=== PATIENT | male | born 1945 | race Caucasian/White ===

== ENCOUNTER → 2016-11-01 | Outpatient (CLI) | payer OTHER ==
[~2016-11-01] MED LIST: CALCTAB5 PO; CENTTAB41 PO; MAGNESIUM PO; OXYC-57 PO; ZINC PO
[2016-11-01 12:29] LABS: BASO % 0.5 %; BASO ABS # 0.03 K/uL (0-0.2); COMPLETE YES; EOS % 3.1 %; HEMATOCRIT 38.2 % (42-52); IG% 0.3 %; LYMPH % 39.3 %; LYMPH ABS # 2.54 K/uL (1.2-3.4); MEAN CELL VOLUME 87.4 fL (80-100); MEAN CORPUSCULAR HEMOGLOBIN 30.2 pg (25-34); MEAN CORPUSCULAR HGB CONC 34.6 g/dl (32-36); MEAN PLATELET VOLUME 10.4 fL (7.4-10.4); MONO % 8.5 %; NEUT % 48.3 %; PLATELET COUNT 241 K/uL (130-400); RED BLOOD COUNT 4.37 M/uL (4.7-6.1); WHITE BLOOD COUNT 6.47 K/uL (4.8-10.8)
[2016-11-01 12:52] LABS: CHOLESTEROL/HDL RATIO 3.2
[2016-11-01 13:42] LABS: ESTIMATED AVERAGE GLUCOSE 123 mg/dl; HA1C FLAG Normal (Normal)
== END | disposition home or self-care (01) ==
LOC: C.LABBFT 07:33
PROVIDERS: ATTEND Internal Medicine
DX: D64.9 Anemia, unspecified (principal); E78.5 Hyperlipidemia, unspecified; R73.9 Hyperglycemia, unspecified

== ENCOUNTER → 2016-12-07 | Outpatient (CLI) | payer OTHER | END | disposition home or self-care (01) | LOC: C.LAB 08:52 | PROVIDERS: ATTEND Internal Medicine | DX: R73.9 Hyperglycemia, unspecified (principal) ==

== ENCOUNTER → 2017-03-23 | Outpatient (CLI) | payer OTHER ==
[2017-03-23 13:25] LABS: CHOLESTEROL/HDL RATIO 3.3
== END ==
LOC: C.LABBFT 07:35
PROVIDERS: ATTEND Internal Medicine
DX: E78.5 Hyperlipidemia, unspecified (principal)

== ENCOUNTER → 2017-12-26 | Outpatient (CLI) | payer OTHER ==
[2017-12-26 12:32] LABS: BASO % 0.6 %; BASO ABS # 0.04 K/uL (0-0.2); EOS % 7.5 %; EOS ABS # 0.51 K/uL (0-0.5); HEMATOCRIT 36.8 % (42-52); HEMOGLOBIN 12.5 g/dL (14.0-18.0); IG# 0.02 K/uL (0.00-0.02); LYMPH % 28.8 %; LYMPH ABS # 1.96 K/uL (1.2-3.4); MEAN CELL VOLUME 87.2 fL (80-100); MEAN CORPUSCULAR HEMOGLOBIN 29.6 pg (25-34); MEAN PLATELET VOLUME 9.7 fL (7.4-10.4); MONO % 9.7 %; MONO ABS # 0.66 K/uL (0.11-0.59); NEUT % 53.1 %; NEUT ABS # 3.61 K/uL (1.4-6.5); PLATELET COUNT 270 K/uL (130-400); RED CELL DISTRIBUTION WIDTH CV 12.6 % (11.5-14.5); RED CELL DISTRIBUTION WIDTH SD 40.6 fL (36.4-46.3)
[2017-12-26 13:34] LABS: ALBUMIN 3.5 gm/dl (3.4-5.0); ALT/SGPT 22 U/L (12-78); BLOOD UREA NITROGEN 17 mg/dl (7-18); CARBON DIOXIDE 28 mmol/L (21-32); CHOLESTEROL 184 mg/dl (0-200); CREATININE 1.06 mg/dl (0.60-1.40); GLUCOSE 95 mg/dl (70-99); POTASSIUM 4.5 mmol/L (3.5-5.1); SODIUM 137 mmol/L (136-145)
[2017-12-26 13:37] LABS: ALKALINE PHOSPHATASE 68 U/L (45-117); AST/SGOT 15 U/L (15-37); LDL CHOLESTEROL CALCULATED 102 mg/dl; TOTAL PROTEIN 7.5 gm/dl (6.4-8.2)
== END | disposition home or self-care (01) ==
LOC: C.LABBFT 07:24
PROVIDERS: ATTEND Internal Medicine
DX: R73.09 Other abnormal glucose (principal); R73.01 Impaired fasting glucose; E78.5 Hyperlipidemia, unspecified

== ENCOUNTER → 2017-12-31 | Outpatient (CLI) | payer OTHER | END | disposition home or self-care (01) | LOC: C.LABBFT 15:36 | PROVIDERS: ATTEND Internal Medicine | DX: D64.9 Anemia, unspecified (principal) ==

== ENCOUNTER 2024-08-24 09:58 | Observation (INO) ==
--- NOTE | 2024-08-24 10:24 | Emergency Department Note ---
Impression & Plan TIA (transient ischemic attack), Complaint of paresthesia, Weakness ED Provider Note NAME: GUILLE VASQUEZ AGE: 79 SEX: M : 1945 ARRIVES VIA: Walk-In INFORMANT: Patient ED PROVIDER(S): Geronimo Neumann DO CHIEF COMPLAINT: Right-sided numbness HPI: Patient is a an 80-year-old male who presents to the ER with a past medical history of prediabetes, hyperlipidemia, and hypertension who presents to the ER for right-sided weakness and numbness. He notes this started last night and lasted for about 5 minutes then resolved. He had it again this morning around 8 AM. Denies any headache or change in vision. No chest pain or shortness of breath. No nausea, vomiting, or diarrhea. No dysuria, urgency, or frequency. No other exacerbating or remitting factors. ADDITIONAL HISTORY OBTAINED: Per HPI Chronic Medical/Social Conditions Affecting Care: Per HPI PAST MEDICAL HISTORY:See Below PAST SURGICAL HISTORY:See Below FAMILY HISTORY:See Below SOCIAL HISTORY:See Below HOME MEDICATIONS:See Below ALLERGIES:See Below VITALS:See Below PHYSICAL EXAMINATION: GENERAL: Sitting up in bed, alert, well appearing, well nourished, no distress, non-toxic EYE EXAM: normal conjunctiva. PERRL and EOM's grossly intact. OROPHARYNX: no exudate, no erythema, lips, buccal mucosa, and tongue normal and mucous membranes are moist NECK: supple, no nuchal rigidity, no adenopathy, non-tender LUNGS: Clear to auscultation. Normal chest wall mechanics HEART: no murmurs, S1 normal and S2 normal ABDOMEN: abdomen soft, non-tender, normo-active bowel sounds, no masses, no rebound or guarding. UPPER EXTREMITIES: upper extremities are grossly normal. LOWER EXTREMITIES: No pitting edema. NEURO EXAM: Normal sensorium, cranial nerves II-XII intact, normal speech, no weakness of arms, no weakness of legs. No drift. Finger-nose intact. MEDICAL DECISION MAKING: Patient is an 79-year-old male who presents ER for the below stated complaint. IV was established and blood work was obtained. Labs show no significant leukocytosis or anemia. INR unremarkable. BMP with slightly elevated glucose at 138. LFTs and bilirubin is unremarkable. Mag at 2.1. Troponin was negative. CT angios of the head and neck were negative for any acute pathology. Chest x-ray unremarkable. With the intermittent weakness and numbness on the right side which has been coming going since yesterday I discussed case with the hospitalist for further evaluation management treatment. Patient had no symptoms upon arrival and admission. Consults/Care Managements Discussions: Per [facility] Triage Nursing notes reviewed. Limited review of prior medical records performed Vital Signs: reviewed and remarkable for HTN Differential diagnosis: Differential Diagnosis includes but is not limited to ischemic Stroke, hemorrhagic stroke, bells palsy, mass, neoplasm, migraine headache, seizure, subarachnoid hemorrhage, TIA, and transient global amnesia. ER treatment provided: See below Diagnostics interpreted by me include EKG and cardiac monitoring as listed below: -Cardiac Monitoring: An order was placed for continuous cardiac monitoring. The monitor shows a rate of 80 with sinus rhythm. -ECG: Sinus rhythm rate 81 Left axis No PVCs QTc 448 -Laboratory studies:Interpreted by me as stated above in MDM and shown below. 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 Chronic anemia Hypertension Hypogonadotropic hypogonadism in male Trochanteric bursitis, right hip Left knee DJD Calculus of proximal left ureter Medical History (Updated 08/24/24 @ 15:50 by Geronimo Neumann DO) Vitamin D deficiency Osteoarthritis Hearing loss in right ear Tubular adenoma of colon hx Lyme disease hx Surgical History Status post trigger finger release left hand History of colonoscopy with polypectomy History of tonsillectomy History of hernia repair (~1969) left 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 Brother Esophageal cancer Other No family history of adverse response to anesthesia No significant family history Denies family history of Ovarian cancer Prostate cancer Coronary heart disease Breast cancer Colorectal cancer Social History Smoking Status: Never smoker Second Hand Exposure: No; Do You Dip or Chew Tobacco: No; Hx Alcohol Use: No Hx Substance Use: No Preferred Language: Israeli Communication Ability: Effective Visual Impairment: No Limitations Hearing Ability: Hard of Hearing Detail Drafter Required: No Beliefs That Will Affect Care: None marital status: Current Living Situation: Spouse current occupational status: retired current occupation: Retired lamar/painter helper. Feels Safe at Home: Yes Childhood Exposure to Second-Hand Smoke: Yes Diet: regular Diet Comment: tries to eat a very healthy diet caffeine: Yes Dental Care, Regularly: Yes Physical Activity Frequency: Daily Seatbelt Use: always Sunscreen Use: Yes Assistive Devices: Glasses Allergies Allergies Allergy/AdvReac Type Severity Reaction Status Date / Time rosuvastatin [From Crestor] Allergy Unknown "got boils Verified 07/09/24 14:16 on my face" atorvastatin AdvReac Unknown "right Verified 07/09/24 14:16 side got tingling" Home Meds Home Medications Medication Instructions Recorded Confirmed multivitamin with minerals 1 tab PO QAM 08/27/19 08/24/24 zinc-magnesium aspart-vit B6 10 1 cap PO QAM 01/05/21 08/24/24 mg-150 mg-3.83 mg capsule ascorbic acid (vitamin C) 500 mg 500 mg PO DAILY 07/18/23 08/24/24 chewable tablet calcium acetate 668 mg (169 mg 668 mg PO DAILY 07/18/23 08/24/24 calcium) tablet Previous Rx's Medication Instructions Recorded amlodipine 5 mg tablet 5 mg PO DAILY #90 tabs 02/07/24 testosterone cypionate 200 mg/mL 75 mg (0.375 mL) subcut Q14D #4 mL 07/15/24 intramuscular oil cholecalciferol (vitamin D3) 50 4,000 unit PO DAILY #180 caps 07/16/24 mcg (2,000 unit) capsule olmesartan 40 mg tablet 40 mg PO QAM #90 tabs 08/01/24 Results & Data (ED) Vital Signs Vital Signs - 24 hr 08/24/24 10:08 08/24/24 10:30 08/24/24 10:30 Temperature 36.2 C L Temperature Source Temporal Artery Scan Pulse Rate 79 84 Pulse Rate from SpO2 Sensor 83 Respiratory Rate 20 17 Respiratory Effort / Characteristics Non-Labored Spontaneous Respiratory Depth Normal Blood Pressure 173/70 H 160/78 H Blood Pressure Mean 104 125 Pulse Oximetry 99 99 Oxygen Delivery Method Room Air Sepsis Recent Fever Within 48 Hours No Sepsis New/Unexplained Change in Mental Status N/A Sepsis Action Taken by Nursing No Action Required 08/24/24 10:38 08/24/24 11:00 08/24/24 11:00 Temperature Temperature Source Pulse Rate 87 72 Pulse Rate from SpO2 Sensor 72 Respiratory Rate 17 Respiratory Effort / Characteristics Respiratory Depth Blood Pressure 160/80 H Blood Pressure Mean 124 Pulse Oximetry 98 Oxygen Delivery Method Sepsis Recent Fever Within 48 Hours Sepsis New/Unexplained Change in Mental Status Sepsis Action Taken by Nursing 08/24/24 11:09 08/24/24 11:43 08/24/24 11:45 Temperature Temperature Source Pulse Rate 65 79 Pulse Rate from SpO2 Sensor 65 80 Respiratory Rate 22 17 Respiratory Effort / Characteristics Respiratory Depth Blood Pressure 160/74 H Blood Pressure Mean 104 Pulse Oximetry 98 100 Oxygen Delivery Method Sepsis Recent Fever Within 48 Hours Sepsis New/Unexplained Change in Mental Status Sepsis Action Taken by Nursing 08/24/24 12:23 08/24/24 12:24 08/24/24 12:30 Temperature Temperature Source Pulse Rate 67 Pulse Rate from SpO2 Sensor 70 Respiratory Rate 18 Respiratory Effort / Characteristics Respiratory Depth Blood Pressure 168/72 H 152/71 H Blood Pressure Mean 112 112 Pulse Oximetry 99 Oxygen Delivery Method Sepsis Recent Fever Within 48 Hours Sepsis New/Unexplained Change in Mental Status Sepsis Action Taken by Nursing 08/24/24 12:30 08/24/24 13:00 08/24/24 13:12 Temperature Temperature Source Pulse Rate 69 72 Pulse Rate from SpO2 Sensor 69 72 Respiratory Rate 18 20 Respiratory Effort / Characteristics Respiratory Depth Blood Pressure 163/74 H Blood Pressure Mean 126 Pulse Oximetry 98 97 Oxygen Delivery Method Sepsis Recent Fever Within 48 Hours Sepsis New/Unexplained Change in Mental Status Sepsis Action Taken by Nursing 08/24/24 13:45 08/24/24 13:48 08/24/24 14:00 Temperature Temperature Source Pulse Rate 77 72 Pulse Rate from SpO2 Sensor 76 72 Respiratory Rate 15 18 Respiratory Effort / Characteristics Respiratory Depth Blood Pressure 152/63 H Blood Pressure Mean 84 Pulse Oximetry 99 100 Oxygen Delivery Method Sepsis Recent Fever Within 48 Hours Sepsis New/Unexplained Change in Mental Status Sepsis Action Taken by Nursing 08/24/24 14:21 08/24/24 14:27 08/24/24 14:28 Temperature Temperature Source Pulse Rate 73 75 76 Pulse Rate from SpO2 Sensor 74 77 Respiratory Rate 18 16 Respiratory Effort / Characteristics Respiratory Depth Blood Pressure Blood Pressure Mean Pulse Oximetry 97 97 Oxygen Delivery Method Sepsis Recent Fever Within 48 Hours Sepsis New/Unexplained Change in Mental Status Sepsis Action Taken by Nursing 08/24/24 14:30 08/24/24 14:36 Temperature Temperature Source Pulse Rate 77 Pulse Rate from SpO2 Sensor 76 Respiratory Rate 19 Respiratory Effort / Characteristics Respiratory Depth Blood Pressure 159/74 H Blood Pressure Mean 109 Pulse Oximetry 99 Oxygen Delivery Method Sepsis Recent Fever Within 48 Hours Sepsis New/Unexplained Change in Mental Status Sepsis Action Taken by Nursing Laboratory Data 08/24/24 10:20 08/24/24 10:20 Lab Results 08/24/24 Range/Units 10:20 WBC 7.60 (4.8-10.8) K/ul RBC 4.29 L (4.70-6.10) M/uL Hgb 13.0 L (14.0-18.0) g/dl Hct 37.7 L (42.0-52.0) % MCV 87.9 (80.0-100.0) fL MCH 30.3 (25.0-34.0) pg MCHC 34.5 (32.0-36.0) g/dL RDW Std Deviation 38.8 (36.4-46.3) fL RDW Coeff of Ashlee 12.1 (11.5-14.5) % Plt Count 230 (130-400) K/uL MPV 9.5 (9.4-12.4) fL Immature Gran % (Auto) 0.8 % Neut % (Auto) 67.5 % Lymph % (Auto) 19.9 % [place] % (Auto) 8.8 % Eos % (Auto) 2.1 % Baso % (Auto) 0.9 % Neut # (Auto) 5.13 (1.40-6.50) K/uL Lymph # (Auto) 1.51 (1.20-3.40) K/uL [place] # (Auto) 0.67 H (0.11-0.59) K/uL Eos # (Auto) 0.16 (0.00-0.50) K/uL Baso # (Auto) 0.07 (0.00-0.20) K/uL Immature Gran # (Auto) 0.06 (0.01-0.20) K/uL PT 10.4 (9.0-12.0) Seconds INR 1.0 (0.9-1.1) APTT 27 (21-31) Seconds PTT Ratio 1.0 Sodium 140 (136-145) mmol/L Potassium 3.9 (3.5-5.1) mmol/L Chloride 105 (98-107) mmol/L Carbon Dioxide 26 (21-32) mmol/L Anion Gap 9 (3-11) BUN 24 H (6-23) mg/dl Creatinine 1.17 (0.6-1.4) mg/dl Est Cr Clr Drug Dosing 47.1 ml/min eGFR 62.63 BUN/Creatinine Ratio 20.5 H (10-20) Glucose 138 H (70-99(Fasting)) mg/dl Calcium 9.7 (8.6-10.3) mg/dl Magnesium 2.1 (1.7-2.4) mg/dl Total Bilirubin 0.6 (0.2-1.0) mg/dl AST 19 (13-39) U/L ALT 15 (7-52) U/L Alkaline Phosphatase 53 (34-104) U/L Troponin I High Sens 10.1 (0-20) pg/ml Total Protein 7.9 (6.0-8.3) gm/dl Albumin 4.6 (3.4-5.0) gm/dl Globulin 3.3 (2.5-4.0) gm/dl Albumin/Globulin Ratio 1.4 (0.9-2) Administered Medications Lorazepam (Lorazepam 2 Mg/1 Ml Vial) 0.5 mg IV ONCE PRN PRN Reason: MRI BRAIN Stop: 08/24/24 23:59 Last Admin: 08/24/24 14:56 Dose: 0.5 mg Documented By: ROSANNEE Discontinued Medications Aspirin (Aspirin 81 Mg Ectab) 81 mg PO NOW STA Stop: 08/24/24 12:47 Last Admin: 08/24/24 13:18 Dose: 81 mg Documented By: RAMANA Gadobutrol (Gadobutrol 30ml Vial) 6.5 ml IV ONCE ONE Stop: 08/24/24 15:42 Last Admin: 08/24/24 15:41 Dose: 6.5 ml Documented By: CHRISTIAN Ioversol (Optiray 320 125ml) 120 ml IV ONCE ONE Stop: 08/24/24 11:25 Last Admin: 08/24/24 11:24 Dose: 120 ml Documented By: SIDDHARTHA Imaging Data Radiologist's Impression: Chest X-Ray 08/24/24 10:18 XR chest 1V portable CLINICAL HISTORY: neuro deficit, acute stroke suspected COMPARISON STUDY: Chest CT September 29, 2007. Chest radiograph March 05, 2023. FINDINGS: Lung volumes are normal. Lungs are clear. There is no pneumothorax or pleural effusion. Cardiac size is normal. Mediastinal contours are normal. There is no evidence for pulmonary edema. IMPRESSION: No acute cardiopulmonary findings. No change in appearance of the chest. ACT 112: Negative or not required by law. Electronically signed by: Carlos A Chambers M.D. 08/24/2024 10:[address] 08/24/24 10:18 CT OF THE HEAD WITHOUT CONTRAST CLINICAL HISTORY: neuro deficit, acute stroke suspected COMPARISON STUDY: MRI of the brain March 31, 2019. Head CT December 23, 2008. TECHNIQUE: Helical axial images of the head were obtained without IV contrast. Automated exposure control was utilized for the study. A dose lowering technique was utilized adhering to the principles of ALARA. FINDINGS: No acute intracranial hemorrhage, midline shift or mass effect is present. The ventricular system is unremarkable. The basal cisterns are patent. No extra-axial collections are present. There are no findings to suggest acute dural sinus thrombosis or acute territorial infarct. No significant calvarial abnormalities are present. Postoperative findings consistent with transsphenoidal pituitary resection are noted. Although suboptimally assessed by CT, the appearance is similar to previous MRI. IMPRESSION: No acute intracranial findings. ACT 112: Negative or not required by law. Electronically signed by: Carlos A Chambers M.D. 08/24/2024 11:34 AM Head CTA 08/24/24 10:18 CTA ANGIOGRAPHY OF THE HEAD CLINICAL HISTORY: neuro deficit, acute stroke suspected COMPARISON STUDY: MRI of the brain March 31, 2019. TECHNIQUE: Helical axial images of the head were obtained following uneventful intravenous administration of 120 cc of Optiray. Sagittal and coronal reconstructions were viewed as well as maximal intensity projections on an independent 3-D workstation. Automated exposure control was utilized for the study. A dose lowering technique was utilized adhering to the principles of ALARA. FINDINGS: There is short segment occlusion with reconstitution versus severe stenosis of the left P2 segment on image 126 of 274. Otherwise, the intracranial vessels are patent. There is moderate plaque within the bilateral cavernous and supraclinoid ICAs which results in mild stenosis of these vessels. There is no intracranial aneurysm. No additional stenoses are identified. Although suboptimally assessed by CT, postoperative findings consistent with transsphenoidal pituitary resection appear similar to MRI of March 31, 2019. IMPRESSION: 1. Short segment occlusion with reconstitution versus severe stenosis of the P2 segment of the left posterior cerebral artery. Otherwise, intracranial vessels patent. 2. Moderate atherosclerotic plaque within the bilateral cavernous and supraclinoid ICAs which results in mild stenosis. 3. No intracranial aneurysm. ACT 112: Negative or not required by law. Electronically signed by: Carlos A Chambers M.D. 08/24/2024 11:43 AM Neck CTA 08/24/24 10:18 CT ANGIOGRAPHY OF THE NECK WITH CONTRAST CLINICAL HISTORY: neuro deficit, acute stroke suspected COMPARISON STUDY: No previous studies for comparison. Technique: CT angiography of the carotid and vertebral arteries was obtained using Optiray and 3D reconstruction on an independent workstation. NASCET criteria was utilized. Automated exposure control was utilized for the study. A dose lowering technique was utilized adhering to the principles of ALARA. CT DOSE: 1318.86 mGy.cm Findings: Subpleural biapical densities within the lungs favor scarring. There is no cervical lymphadenopathy. There are no cervical spine fractures. The bilateral common carotid, cervical internal carotid and vertebral arteries are patent. There is mild plaque within the proximal bilateral internal carotid arteries, right greater than left. This results in approximate 20% stenosis of the proximal right internal carotid artery. The vertebral arteries are patent. There is no aneurysm or dissection within the neck. IMPRESSION: 1. Mild atherosclerotic plaque within the proximal bilateral internal carotid arteries which results in approximate 20% stenosis of the proximal right internal carotid artery. No stenosis of the left internal carotid artery. 2. No aneurysm or dissection within the neck. ACT 112: Negative or not required by law. Electronically signed by: Carlos A Chambers M.D. 08/24/2024 11:38 AM Discharge Plan Visit Data Chief Complaint: TIA Symptoms Stated Complaint: TINGLING/NUMBNESS, RT ARM/LEG, SLIGHT DIZZINESS ED Provider: Geronimo Neumann Discharge Problem: TIA (transient ischemic attack), Complaint of paresthesia, Weakness Forms Stand Alone Forms: My [facility] Prescriptions Prescriptions: No Action olmesartan 40 mg tablet 40 mg PO QAM Qty: 90 3RF ascorbic acid (vitamin C) 500 mg tablet,chewable 500 mg PO DAILY calcium acetate 668 mg (169 mg calcium) tablet 668 mg PO DAILY amlodipine 5 mg tablet 5 mg PO DAILY Qty: 90 3RF multivitamin with minerals tablet 1 tab PO QAM testosterone cypionate 200 mg/mL oil 75 mg subcut Q14D Qty: 4 3RF Hold Instructions: needs uro clear cholecalciferol (vitamin D3) 50 mcg (2,000 unit) capsule 4,000 unit PO DAILY Qty: 180 3RF zinc-magnesium aspart-vit B6 10-150-3.83 mg Capsule 1 cap PO QAM Referrals Referrals: Dillon Moeller MD [Primary Care Provider] -
[2024-08-24 10:41] LABS: Basophils # (auto) 0.07 K/uL (0.00-0.20); Basophils % (auto) 0.9 %; Eosinophils # (auto) 0.16 K/uL (0.00-0.50); Eosinophils % (auto) 2.1 %; Hematocrit (blood only) 37.7 % (42.0-52.0); Immature Granulocytes # (auto) 0.06 K/uL (0.01-0.20); Immature Granulocytes % (auto) 0.8 %; Lymphocytes # (auto) 1.51 K/uL (1.20-3.40); Lymphocytes % (auto) 19.9 %; Mean Corpuscular Hemoglobin 30.3 pg (25.0-34.0); Mean Corpuscular Hgb Conc 34.5 g/dL (32.0-36.0); Mean Corpuscular Volume 87.9 fL (80.0-100.0); Mean Platelet Volume 9.5 fL (9.4-12.4); Monocytes # (auto) 0.67 K/uL (0.11-0.59); Monocytes % (auto) 8.8 %; Neutrophils # (auto) 5.13 K/uL (1.40-6.50); Neutrophils % (auto) 67.5 %; Platelet Count 230 K/uL (130-400); RDW Coefficient of Variation 12.1 % (11.5-14.5); RDW Standard Deviation 38.8 fL (36.4-46.3); Red Blood Count 4.29 M/uL (4.70-6.10)
[2024-08-24 10:59] LABS: Albumin Globulin Ratio 1.4 (0.9-2); Albumin Level 4.6 gm/dl (3.4-5.0); BUN Creatinine Ratio 20.5 (10-20); Bilirubin,Total 0.6 mg/dl (0.2-1.0); Calcium 9.7 mg/dl (8.6-10.3); Creatinine Clr Calc Pharmacy 47.1 ml/min; Globulin 3.3 gm/dl (2.5-4.0); Magnesium 2.1 mg/dl (1.7-2.4); Potassium 3.9 mmol/L (3.5-5.1); Total Protein 7.9 gm/dl (6.0-8.3)
--- NOTE | 2024-08-24 10:59 | XRay Report ---
XR chest 1V portable CLINICAL HISTORY: neuro deficit, acute stroke suspected COMPARISON STUDY: Chest CT September 29, 2007. Chest radiograph March 05, 2023. FINDINGS: Lung volumes are normal. Lungs are clear. There is no pneumothorax or pleural effusion. Car diac size is normal. Mediastinal contours are normal. There is no evidence for pulmonary edema. IMPRESSION: No acute cardiopulmonary findings. No change in appearance of the chest. ACT 112: Negative or not required by law. Electronically signed by: Carlos A Chambers M.D. 08/24/2024 10:57 AM
[2024-08-24 11:05] LABS: Troponin I High Sensitivity 10.1 pg/ml (0-20)
[2024-08-24 11:09] LABS: Partial Thromboplastin Time 27 Seconds (21-31); Prothrombin Time 10.4 Seconds (9.0-12.0)
[2024-08-24] MEDS: OPTIRAY 320 125ml IV ONE (11:24)
--- NOTE | 2024-08-24 11:35 | CT Scan Report ---
CT OF THE HEAD WITHOUT CONTRAST CLINICAL HISTORY: neuro deficit, acute stroke suspected COMPARISON STUDY: MRI of the brain March 31, 2019. Head CT December 23, 2008. TECHNIQUE: Helical axial images of the head were obtained without IV contrast. Automated exposure con trol was utilized for the study. A dose lowering technique was utilized adhering to the principles o f ALARA. FINDINGS: No acute intracranial hemorrhage, midline shift or mass effect is present. The ventricular system is unremarkable. The basal cisterns are patent. No extra-axial collections are present. There are no findings to suggest acute dural sinus thrombosis or acute territorial infarct. No significant calvarial abnormalities are present. Postoperative findings consistent with transsphenoidal pituitary resection are noted. Although suboptimally assessed by CT, the appearance is similar to previous MRI . IMPRESSION: No acute intracranial findings. ACT 112: Negative or not required by law. Electronically signed by: Carlos A Chambers M.D. 08/24/2024 11:34 AM
--- NOTE | 2024-08-24 11:40 | CT Scan Report ---
CT ANGIOGRAPHY OF THE NECK WITH CONTRAST CLINICAL HISTORY: neuro deficit, acute stroke suspected COMPARISON STUDY: No previous studies for comparison. Technique: CT angiography of the carotid and vertebral arteries was obtained using Optiray and 3D rec onstruction on an independent workstation. NASCET criteria was utilized. Automated exposure control was utilized for the study. A dose lowering technique was utilized adhering to the principles of ALA RA. CT DOSE: 1318.86 mGy.cm Findings: Subpleural biapical densities within the lungs favor scarring. There is no cervical lymphad enopathy. There are no cervical spine fractures. The bilateral common carotid, cervical internal mei tid and vertebral arteries are patent. There is mild plaque within the proximal bilateral internal ca rotid arteries, right greater than left. This results in approximate 20% stenosis of the proximal rig ht internal carotid artery. The vertebral arteries are patent. There is no aneurysm or dissection wit hin the neck. IMPRESSION: 1. Mild atherosclerotic plaque within the proximal bilateral internal carotid arteries which results in approximate 20% stenosis of the proximal right internal carotid artery. No stenosis of the left in ternal carotid artery. 2. No aneurysm or dissection within the neck. ACT 112: Negative or not required by law. Electronically signed by: Carlos A Chambers M.D. 08/24/2024 11:38 AM
--- NOTE | 2024-08-24 11:45 | CT Scan Report ---
CTA ANGIOGRAPHY OF THE HEAD CLINICAL HISTORY: neuro deficit, acute stroke suspected COMPARISON STUDY: MRI of the brain March 31, 2019. TECHNIQUE: Helical axial images of the head were obtained following uneventful intravenous administr ation of 120 cc of Optiray. Sagittal and coronal reconstructions were viewed as well as maximal inten sity projections on an independent 3-D workstation. Automated exposure control was utilized for the study. A dose lowering technique was utilized adhering to the principles of ALARA. FINDINGS: There is short segment occlusion with reconstitution versus severe stenosis of the left P2 segment on image 126 of 274. Otherwise, the intracranial vessels are patent. There is moderate plaque within the bilateral cavernous and supraclinoid ICAs which results in mild stenosis of these vessels . There is no intracranial aneurysm. No additional stenoses are identified. Although suboptimally ass essed by CT, postoperative findings consistent with transsphenoidal pituitary resection appear simila r to MRI of March 31, 2019. IMPRESSION: 1. Short segment occlusion with reconstitution versus severe stenosis of the P2 segment of the left p osterior cerebral artery. Otherwise, intracranial vessels patent. 2. Moderate atherosclerotic plaque within the bilateral cavernous and supraclinoid ICAs which results in mild stenosis. 3. No intracranial aneurysm. ACT 112: Negative or not required by law. Electronically signed by: Carlos A Chambers M.D. 08/24/2024 11:43 AM
--- NOTE | 2024-08-24 12:22 | History & Physical Report ---
Date of Service August 24, 2024 Assessment & Plan (1) Stroke-like symptoms: (2) Hypertension: (3) Chronic kidney disease, stage 3a: (4) History of pituitary tumor: (5) Prediabetes: Plan 79-year-old male with past medical history of hypertension, prediabetes, CKD stage III, history of pituitary macroadenoma status post resection in 2008 presents to the ED with right-sided numbness and tingling with started at 5 PM yesterday, lasted for 5 minutes and resolved and recurred again today at 8 AM, lasted for 5 minutes and resolved #Stroke like symptoms/numbness and tingling on right side of the body: TIA versus CVA #Essential hypertension Symptoms of all resolved NIH score is 0 and hence no TNK given by ED Admit to telemetry for observation CT of the head was unremarkable CT of the head showed short segment occlusion with reconstitution versus severe stenosis of the P2 segment of the left posterior cerebral artery, otherwise intracranial vessels patent. No intracranial aneurysm. Moderate atherosclerotic plaque within the bilateral cavernous and supraclinoid ICAs with mild stenosis CT of the neck shows mild atherosclerotic plaque within the proximal bilateral internal carotid arteries with resultant approximate 20% stenosis of the proximal right internal carotid artery. No stenosis of the left internal carotid artery. Start aspirin 81 mg daily Discussed statin with patient: Patient states he is allergic to atorvastatin and rosuvastatin. At this point he does not wish to start a statin today and wants to think about it and see his clinical course. Discussed trying simvastatin or pravastatin but patient at this point wants to hold off on statin. Discussed role of statins and TIA versus CVA. Permissive hypertension for the next 24 to 48 hours: Hold amlodipine and olmesartan for now Use IV labetalol for hypertension: For SBP greater than 185 Monitor vital signs Check A1c Check fasting lipid panel Check MRI of the brain Check 2D echo Neurochecks every 4 hours PT/OT Diet if patient passes bedside swallow evaluation Neurology consult: Await recommendations #Prediabetes A1c 6.0 from 01/31/2024 Check A1c Lifestyle counseling regarding diet, exercise provided #CKD stage IIIa Renal function is at baseline Avoid nephrotoxic agents including NSAIDs Monitor renal function electrolytes #History of pituitary macroadenoma status post resection in 2008 Patient follows up with seismic engineer Dr. Russell Olivera He is on testosterone replacement and also on vitamin D Outpatient follow-up with endocrinology CODE STATUS: Discussed with patient, full code. DVT prophylaxis: Heparin 5000 units subcutaneous twice daily Care plan discussed with patient and family including Deepa and daughters updated bedside History of Present Illness Chief Complaint: Right-sided numbness and tingling Primary Care Provider: Dillon Moeller MD 79-year-old male with past medical history of hypertension, prediabetes, CKD stage III, history of pituitary macroadenoma status post resection in 2008 presents to the ED with right-sided numbness and tingling with started at 5 PM yesterday, lasted for 5 minutes and resolved and recurred again today at 8 AM, lasted for 5 minutes and resolved Patient states he has been working on his house on a [employer] project for the last few days and has been overdoing it. His symptoms of right sided numbness and tingling occurred at rest. He reports the whole right side of his body felt numb and was tingling, denies any weakness. Denies any headache but does report some dizziness associated with it. Denies any syncopal episodes, chest pain, palpitations, shortness of breath, cough, fever, chills, urinary symptoms, nausea, vomiting, diarrhea, abdominal pain. Patient's symptoms had all resolved prior to coming to ED. In ED, patient had a CT of the head which showed no acute intracranial findings. He also has a CT of the head which showed a short segment occlusion with reconstitution versus severe stenosis of the P2 segment of the left posterior cerebral artery, moderate atherosclerotic plaque within the bilateral cavernous and supraclinoid internal carotid arteries which results in mild stenosis, no intracranial aneurysm. CTA of the neck showed mild atherosclerotic plaque within the proximal bilateral internal carotid arteries which results in approximately 20% stenosis of the proximal right internal carotid artery. No stenosis of the left internal carotid artery. No aneurysm or dissection within the neck. Hospitalist medicine was called for admission Labs, radiology, telemetry monitoring reviewed and discussed with patient Social history: Patient lives at home with his . He is independent of ADLs, very active and drives. He is a retired body technician/painter and lamar. He denies tobacco use or alcohol use. Family history: Father of an ID at age 73, mother of motor vehicle accident at 79 Allergies Allergy/AdvReac Type Severity Reaction Status Date / Time rosuvastatin [From Crestor] Allergy Unknown "got boils Verified 07/09/24 14:16 on my face" atorvastatin AdvReac Unknown "right Verified 07/09/24 14:16 side got tingling" Home Medications Medication Instructions Recorded Confirmed Type multivitamin with minerals 1 tab PO QAM 08/27/19 08/24/24 History zinc-magnesium aspart-vit B6 10 1 cap PO QAM 01/05/21 08/24/24 History mg-150 mg-3.83 mg capsule ascorbic acid (vitamin C) 500 mg 500 mg PO DAILY 07/18/23 08/24/24 History chewable tablet calcium acetate 668 mg (169 mg 668 mg PO DAILY 07/18/23 08/24/24 History calcium) tablet amlodipine 5 mg tablet 5 mg PO DAILY #90 tabs 02/07/24 08/24/24 Rx testosterone cypionate 200 mg/mL 75 mg (0.375 mL) subcut Q14D #4 mL 07/15/24 08/24/24 Rx intramuscular oil cholecalciferol (vitamin D3) 50 4,000 unit PO DAILY #180 caps 07/16/24 08/24/24 Rx mcg (2,000 unit) capsule olmesartan 40 mg tablet 40 mg PO QAM #90 tabs 08/01/24 08/24/24 Rx Past Med/Surg History Problem List (Updated 08/24/24 @ 13:57 by Murali Ibanez MD) Stroke-like symptoms Elevated PSA Prediabetes Chronic kidney disease, stage 3a Hx of nephrolithotomy with removal of calculi Hyperlipidemia History of pituitary tumor BPH loc w/o ur obs/LUTS Chronic anemia Hypertension Hypogonadotropic hypogonadism in male Trochanteric bursitis, right hip Left knee DJD Calculus of proximal left ureter Medical History (Updated 08/24/24 @ 13:57 by Murali Ibanez MD) Vitamin D deficiency Osteoarthritis Hearing loss in right ear Tubular adenoma of colon hx Lyme disease hx Surgical History Status post trigger finger release left hand History of colonoscopy with polypectomy History of tonsillectomy History of hernia repair (~1969) left 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 Brother Esophageal cancer Other No family history of adverse response to anesthesia No significant family history Denies family history of Ovarian cancer Prostate cancer Coronary heart disease Breast cancer Colorectal cancer Social History Smoking Status: Never smoker Second Hand Exposure: No; Do You Dip or Chew Tobacco: No; Hx Alcohol Use: No Hx Substance Use: No Preferred Language: Amharic Communication Ability: Effective Visual Impairment: No Limitations Hearing Ability: Hard of Hearing Expressive Therapist Required: No Beliefs That Will Affect Care: None marital status: Current Living Situation: Spouse current occupational status: retired current occupation: Retired lamar/body technician/painter. Feels Safe at Home: Yes Childhood Exposure to Second-Hand Smoke: Yes Diet: regular Diet Comment: tries to eat a very healthy diet caffeine: Yes Dental Care, Regularly: Yes Physical Activity Frequency: Daily Seatbelt Use: always Sunscreen Use: Yes Assistive Devices: Glasses Review of Systems Review of Systems: All 12 systems were reviewed and are either negative or noted in HPI Physical Exam Physical Exam: General: No acute distress Psych: Awake and alert, oriented to place person and time HEENT: Anicteric sclera, moist oral mucosa CVS: Regular rate and rhythm Lungs: Bilateral air entry, no wheezing noted, no use of accessory muscles Abdomen: Soft, nontender, no rebound, no guarding Ext: No lower extremity edema, no calf tenderness Neuro: No focal motor deficits noted, cranial nerves II to XII are grossly intact, gait normal Skin: No rashes Results & Data Results & Data Vital Signs (Past 12 Hours) Vital Signs Temp Pulse Resp BP Pulse Ox O2 Del Method 08/24/24 10:38 87 08/24/24 10:30 84 17 99 08/24/24 10:30 160/78 H 08/24/24 10:08 36.2 C L 79 20 173/70 H 99 Room Air Laboratory Results 08/24/24 10:20 WBC 7.60 RBC 4.29 L Hgb 13.0 L Hct 37.7 L MCV 87.9 MCH 30.3 MCHC 34.5 RDW Std Deviation 38.8 RDW Coeff of Ashlee 12.1 Plt Count 230 MPV 9.5 Immature Gran % (Auto) 0.8 Neut % (Auto) 67.5 Lymph % (Auto) 19.9 Dale % (Auto) 8.8 Eos % (Auto) 2.1 Baso % (Auto) 0.9 Neut # (Auto) 5.13 Lymph # (Auto) 1.51 Dale # (Auto) 0.67 H Eos # (Auto) 0.16 Baso # (Auto) 0.07 Immature Gran # (Auto) 0.06 PT 10.4 INR 1.0 APTT 27 PTT Ratio 1.0 Sodium 140 Potassium 3.9 Chloride 105 Carbon Dioxide 26 Anion Gap 9 BUN 24 H Creatinine 1.17 Est Cr Clr Drug Dosing 47.1 eGFR 62.63 BUN/Creatinine Ratio 20.5 H Glucose 138 H Calcium 9.7 Magnesium 2.1 Total Bilirubin 0.6 AST 19 ALT 15 Alkaline Phosphatase 53 Troponin I High Sens 10.1 Total Protein 7.9 Albumin 4.6 Globulin 3.3 Albumin/Globulin Ratio 1.4 Diagnostic Findings Chest X-Ray 08/24/24 10:18 XR chest 1V portable CLINICAL HISTORY: neuro deficit, acute stroke suspected COMPARISON STUDY: Chest CT September 29, 2007. Chest radiograph March 05, 2023. FINDINGS: Lung volumes are normal. Lungs are clear. There is no pneumothorax or pleural effusion. Cardiac size is normal. Mediastinal contours are normal. There is no evidence for pulmonary edema. IMPRESSION: No acute cardiopulmonary findings. No change in appearance of the chest. ACT 112: Negative or not required by law. Electronically signed by: Carlos A Chambers M.D. 08/24/2024 10:[address] 08/24/24 10:18 CT OF THE HEAD WITHOUT CONTRAST CLINICAL HISTORY: neuro deficit, acute stroke suspected COMPARISON STUDY: MRI of the brain March 31, 2019. Head CT December 23, 2008. TECHNIQUE: Helical axial images of the head were obtained without IV contrast. Automated exposure control was utilized for the study. A dose lowering technique was utilized adhering to the principles of ALARA. FINDINGS: No acute intracranial hemorrhage, midline shift or mass effect is present. The ventricular system is unremarkable. The basal cisterns are patent. No extra-axial collections are present. There are no findings to suggest acute dural sinus thrombosis or acute territorial infarct. No significant calvarial abnormalities are present. Postoperative findings consistent with transsphenoidal pituitary resection are noted. Although suboptimally assessed by CT, the appearance is similar to previous MRI. IMPRESSION: No acute intracranial findings. ACT 112: Negative or not required by law. Electronically signed by: Carlos A Chambers M.D. 08/24/2024 11:34 AM Head CTA 08/24/24 10:18 CTA ANGIOGRAPHY OF THE HEAD CLINICAL HISTORY: neuro deficit, acute stroke suspected COMPARISON STUDY: MRI of the brain March 31, 2019. TECHNIQUE: Helical axial images of the head were obtained following uneventful intravenous administration of 120 cc of Optiray. Sagittal and coronal reconstructions were viewed as well as maximal intensity projections on an independent 3-D workstation. Automated exposure control was utilized for the study. A dose lowering technique was utilized adhering to the principles of ALARA. FINDINGS: There is short segment occlusion with reconstitution versus severe stenosis of the left P2 segment on image 126 of 274. Otherwise, the intracranial vessels are patent. There is moderate plaque within the bilateral cavernous and supraclinoid ICAs which results in mild stenosis of these vessels. There is no intracranial aneurysm. No additional stenoses are identified. Although suboptimally assessed by CT, postoperative findings consistent with transsphenoidal pituitary resection appear similar to MRI of March 31, 2019. IMPRESSION: 1. Short segment occlusion with reconstitution versus severe stenosis of the P2 segment of the left posterior cerebral artery. Otherwise, intracranial vessels patent. 2. Moderate atherosclerotic plaque within the bilateral cavernous and supraclinoid ICAs which results in mild stenosis. 3. No intracranial aneurysm. ACT 112: Negative or not required by law. Electronically signed by: Carlos A Chambers M.D. 08/24/2024 11:43 AM Neck CTA 08/24/24 10:18 CT ANGIOGRAPHY OF THE NECK WITH CONTRAST CLINICAL HISTORY: neuro deficit, acute stroke suspected COMPARISON STUDY: No previous studies for comparison. Technique: CT angiography of the carotid and vertebral arteries was obtained using Optiray and 3D reconstruction on an independent workstation. NASCET criteria was utilized. Automated exposure control was utilized for the study. A dose lowering technique was utilized adhering to the principles of ALARA. CT DOSE: 1318.86 mGy.cm Findings: Subpleural biapical densities within the lungs favor scarring. There is no cervical lymphadenopathy. There are no cervical spine fractures. The bilateral common carotid, cervical internal carotid and vertebral arteries are patent. There is mild plaque within the proximal bilateral internal carotid arteries, right greater than left. This results in approximate 20% stenosis of the proximal right internal carotid artery. The vertebral arteries are patent. There is no aneurysm or dissection within the neck. IMPRESSION: 1. Mild atherosclerotic plaque within the proximal bilateral internal carotid arteries which results in approximate 20% stenosis of the proximal right internal carotid artery. No stenosis of the left internal carotid artery. 2. No aneurysm or dissection within the neck. ACT 112: Negative or not required by law. Electronically signed by: Carlos A Chambers M.D. 08/24/2024 11:38 AM PG Care Time/CCT Total # of Minutes Spent Total Time Spent with Patient: Total time spent is greater than 50% in coordination of care (as documented) at patient's floor/unit and/or counseling patient: Coding Level of Care Code 73920 INT INP/OBS CARE 3/75MIN Diagnoses Stroke-like symptoms R29.90 Primary hypertension I10 Hypertension type: primary hypertension Chronic kidney disease, stage 3a N18.31 History of pituitary tumor Z87.898 Prediabetes R73.03 (2) Hypertension Hypertension type: primary hypertension Qualified Code(s): I10 - Essential (primary) hypertension
[2024-08-24] MEDS: ASPIRIN 81 MG ECTAB PO STA (13:18)
[2024-08-24] MEDS: LORazepam 2 MG/1 ML VIAL IV PRN (14:56)
--- NOTE | 2024-08-24 15:09 | Electrocardiogram Report ---
Test Reason : Blood Pressure : */* mmHG Vent. Rate : 81 BPM Atrial Rate : 81 BPM P-R Int : 194 ms QRS Dur : 122 ms QT Int : 386 ms P-R-T Axes : 57 -37 75 degrees QTcB Int : 448 ms Normal sinus rhythm Left axis deviation Left ventricular hypertrophy with QRS widening and repolarization abnormality Poor R wave progression, consider anterior RI vs. lead placement vs. LVH Abnormal ECG When compared with ECG of 05-Mar-2023 15:51, (RBBB and left anterior fascicular block) is no longer Present Criteria for Septal infarct are no longer Present Confirmed by Dillon Mullen ([id number]) on 08/24/2024 3:09:35 PM Referred By: Confirmed By: Dillon Mullen
--- NOTE | 2024-08-24 15:29 | XCELERA ---
[id number]
[2024-08-24] MEDS: GADOBUTROL 30ML VIAL IV ONE (15:41)
--- NOTE | 2024-08-24 16:01 | Magnetic Resonance Report ---
MRI BRAIN WITH and WITHOUT CONTRAST TECHNIQUE: An MRI examination of the brain was performed utilizing sagittal and axial T1-weighted images as well as axial T2-weighted, FLAIR, gradient echo and diffusion-weighted images. Postcontrast T1-weighted images were also acquired in axial and sagittal planes. IV CONTRAST: 8 mL of Gadavist was intravenously administered. INDICATION: Headaches COMPARISON: MRI of the brain March 31, 2019 FINDINGS: Cerebral volume loss with expected expected dilatation of the basal cisterns are prominent sulcal markings. The ventricles are somewhat enlarged, to a degree that is slightly out of proportion to surrounding cerebral volume loss. There is no evidence of acute infarction or acute intracranial hemorrhage. Periventricular and subcortical white matter T2/FLAIR hyperintense foci are not specific but are typically seen in the setting chronic small vessel ischemic changes. Redemonstrated postsurgical changes from previous transsphenoidal approach resection of the pituitary. There is unchanged intrinsically T1 hyperintense 5 mm nodular structure in the posterior aspect of the right sphenoid sinus region. Otherwise, there is no suspicious parenchymal or extra-axial enhancement. The cerebellar tonsils are normal in position. The major arterial vascular structures of the skull base are patent. No intraorbital soft tissue mass lesion is observed. The visualized pain and sinus are aerated. IMPRESSION: No acute intracranial process detected. Findings that could suggest underlying mild normal pressure/communicate hydrocephalus. No significant change in the redemonstrated postsurgical changes of sphenoidal pituitary resection as described above. Electronically signed by Filipe Oquendo 08-24-2024 4:01 PM
[2024-08-24] MEDS ORDERED: POLYETHYLENE (MIRALAX) 17 GM PACK PO PRN (16:19)
[2024-08-24] MEDS ORDERED: ACETAMINOPHEN 325 MG TAB PO PRN (16:19)
[2024-08-24] MEDS ORDERED: LABETALOL HCL IV 5 MG/ML 20ML IV PRN (16:19)
[2024-08-24] MEDS: HEPARIN SOD 5,000 UNIT/0.5 ML VIAL SQ SCH (20:16)
[2024-08-25 03:02] VITALS: O2SAT 98
[2024-08-25 07:32] LABS: Hematocrit (blood only) 38.5 % (42.0-52.0); Mean Corpuscular Hemoglobin 30.4 pg (25.0-34.0); Mean Corpuscular Hgb Conc 33.8 g/dL (32.0-36.0); Mean Corpuscular Volume 90.2 fL (80.0-100.0); Mean Platelet Volume 9.5 fL (9.4-12.4); Platelet Count 212 K/uL (130-400); RDW Coefficient of Variation 12.2 % (11.5-14.5); RDW Standard Deviation 39.9 fL (36.4-46.3); Red Blood Count 4.27 M/uL (4.70-6.10); White Blood Count 6.71 K/ul (4.8-10.8)
[2024-08-25 07:56] LABS: Albumin Globulin Ratio 1.4 (0.9-2); Albumin Level 4.5 gm/dl (3.4-5.0); BUN Creatinine Ratio 17.8 (10-20); Bilirubin,Total 0.7 mg/dl (0.2-1.0); Calcium 9.6 mg/dl (8.6-10.3); Chol HDL Ratio 4.2 (0-5); Creatinine Clr Calc Pharmacy 41.9 ml/min; Globulin 3.2 gm/dl (2.5-4.0); Magnesium 2.3 mg/dl (1.7-2.4); Potassium 4.6 mmol/L (3.5-5.1); Total Protein 7.7 gm/dl (6.0-8.3)
[2024-08-25 08:00] LABS: Prothrombin Time 10.7 Seconds (9.0-12.0)
[2024-08-25] MEDS: CHOLECALCIFEROL 25 MCG (1000 UNITS) TAB PO SCH (08:09)
[2024-08-25] MEDS: CALCIUM ACETATE 667 MG CAP/TAB PO SCH (08:10)
[2024-08-25] MEDS: ASPIRIN 81 MG ECTAB PO SCH (08:10)
[2024-08-25] MEDS: ASCORBIC ACID 500 MG TAB PO SCH (08:10)
[2024-08-25] MEDS: CEROVITE ADV FORMULA TAB PO SCH (08:14)
[2024-08-25] MEDS: VITAMIN B COMPLEX TAB PO SCH (08:15)
[2024-08-25 08:30] LABS: Estimated Average Glucose 128 mg/dl; Hemoglobin A1C 6.1 % (4.5-5.6)
[2024-08-25] MEDS ORDERED: OLMESARTAN MEDOXOMIL 40 MG TAB PO SCH (09:00)
[2024-08-25] MEDS: amLODIPine BESYLATE 5 MG TAB PO SCH (09:03)
[2024-08-25] MEDS: LOSARTAN POTASSIUM 50 MG TAB PO SCH (09:03)
[2024-08-25 11:35] VITALS: BP 127/63; PULSE 64; RESP 18; TEMP 98.1
[2024-08-25] MEDS: INFLUENZA VACC TS2024-25(65y+)/PF (IIV3) 0.5mL Syr IM ONE (11:50)
--- NOTE | 2024-08-25 11:50 | Neurology Consultation ---
Date of Consultation August 25, 2024 Assessment & Plan (1) TIA (transient ischemic attack): Plan 79-year-old male with TIA localizing to the deep left cerebral hemisphere (probably thalamus), no evidence of acute stroke on MRI although he does have a short segment occlusion with reconstitution of the left P2 segment of the posterior cerebral artery which may have been transiently symptomatic. Fortunately, he has good distal perfusion and/or good collateral flow. Agree with aspirin 81 mg/day. Consider starting a statin. However, he has a history of intolerance to both Crestor and atorvastatin. May follow-up with his PCP to discuss statin recommendation further, I wonder if he would tolerate a low-dose of pravastatin. May continue with losartan and amlodipine for hypertension. Should not require additional neurological follow-up. He is neurologically intact this morning and should not require PT/OT/speech therapy. History of Present Illness Reason for Consultation: TIA Requesting Physician: Sudheer Attending Physician: Murali Ibanez MD History of Present Illness The patient is an 80-year-old male who presented to the emergency department yesterday morning with a chief complaint of right-sided weakness and numbness that resolved in about 5 minutes. He had a similar episode the previous night. Symptoms were primarily sensory, no associated headache, vertigo, or vision disturbance. His symptoms have not recurred. CT of the head was negative for hemorrhage or acute process. CTA of the neck revealed mild atherosclerotic plaque within the proximal bilateral internal carotid arteries. CTA of the head revealed a short segment occlusion with reconstitution versus severe stenosis of the left P2 segment of the posterior cerebral artery. Brain MRI was negative for stroke or other acute process, there was mild atrophy and mild chronic cerebrovascular disease. Imaging not suggestive of normal pressure hydrocephalus. I independently reviewed these images. He has a history of intolerance to statins. He was started on aspirin 81 mg/day. Patient examined this morning with family at bedside, no recurrence of symptoms, feels fine. Allergies Allergy/AdvReac Type Severity Reaction Status Date / Time rosuvastatin [From Crestor] Allergy Unknown "got boils Verified 07/09/24 14:16 on my face" atorvastatin AdvReac Unknown "right Verified 07/09/24 14:16 side got tingling" Home Medications Medication Instructions Recorded Confirmed Type multivitamin with minerals 1 tab PO QAM 08/27/19 08/24/24 History zinc-magnesium aspart-vit B6 10 1 cap PO QAM 01/05/21 08/24/24 History mg-150 mg-3.83 mg capsule ascorbic acid (vitamin C) 500 mg 500 mg PO DAILY 07/18/23 08/24/24 History chewable tablet calcium acetate 668 mg (169 mg 668 mg PO DAILY 07/18/23 08/24/24 History calcium) tablet amlodipine 5 mg tablet 5 mg PO DAILY #90 tabs 02/07/24 08/24/24 Rx testosterone cypionate 200 mg/mL 75 mg (0.375 mL) subcut Q14D #4 mL 07/15/24 08/24/24 Rx intramuscular oil cholecalciferol (vitamin D3) 50 4,000 unit PO DAILY #180 caps 07/16/24 08/24/24 Rx mcg (2,000 unit) capsule olmesartan 40 mg tablet 40 mg PO QAM #90 tabs 08/01/24 08/24/24 Rx Patient History Medical History Vitamin D deficiency Osteoarthritis Hearing loss in right ear Tubular adenoma of colon hx Lyme disease hx Surgical History Status post trigger finger release left hand History of colonoscopy with polypectomy History of tonsillectomy History of hernia repair (~1969) left 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 Myocardial infarction Mother , at age 78. Tobacco use disorder Sister No problems noted. Brother Esophageal cancer Other No family history of adverse response to anesthesia No significant family history Denies family history of Ovarian cancer Prostate cancer Coronary heart disease Breast cancer Colorectal cancer Social History Smoking Status: Never smoker Second Hand Exposure: No; Do You Dip or Chew Tobacco: No; Hx Alcohol Use: No Hx Substance Use: No Preferred Language: Tamazight Communication Ability: Effective Visual Impairment: No Limitations Hearing Ability: Hard of Hearing Outsole Skiver Required: No Beliefs That Will Affect Care: None marital status: Current Living Situation: Spouse current occupational status: retired 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 Feels Safe at Home: Yes Childhood Exposure to Second-Hand Smoke: Yes Diet: regular Diet Comment: tries to eat a very healthy diet caffeine: Yes Dental Care, Regularly: Yes Physical Activity Frequency: Daily Seatbelt Use: always Sunscreen Use: Yes Assistive Devices: Glasses Review of Systems Constitutional: no fever and no chills Eyes: no blind spots and no diplopia Ear, Nose, Mouth, Throat: no hearing loss Respiratory: no cough and no dyspnea Cardiovascular: no chest pain and no palpitations Gastrointestinal: no nausea and no vomiting Genitourinary: no dysuria Musculoskeletal: no myalgia Integumentary: no rash and no lesions Neurologic: as per Subjective / HPI; no headache(s) Psychiatric: no depression and no anxiety Hematologic / Lymphatic: no easy bleeding and no easy bruising Exam (Neuro) Constitutional: well developed and well nourished; no acute distress Eyes: normal visual arciniega by confrontation, PERRL, normal accommodation and EOM intact bilaterally; no nystagmus Neurologic: Oriented to:: Person, Place and Time Memory: Short Term Intact and Remote Intact Attention: Span Intact and Concentration Intact Language: Naming Objects and Repeating Phrases Speech Fluency: negative Dysarthria Speech Aphasia: negative Aphasia Fund of Knowledge: Current Events, Past History and Vocabulary Cranial Nerves: Normal II (Visual arciniega full to confrontation, visual acuity normal), III, IV, (Pupils equal round reactive to light and accommodation, eye movements normal), V (Facial sensation intact), VII (There is no facial droop or weakness), VIII (Hearing intact), IX, X (Palate elevates to midline), XI (Shoulder shrug intact) and XII (Tongue protrudes to midline) Motor Strength: Normal Lower Extremities and Normal Upper Extremities; negative Pronator Drift Motor Tone: Normal Lower Extremities and Normal Upper Extremities Muscle Bulk/Involuntary Movements: No Involuntary Movements; negative Muscle Atrophy Sensation: Light Touch Intact, Pain/Temperature Intact, Vibration Intact and Proprioception Intact Coordination: Normal; negative Limited Balance, Dysdiadochokinesia, Finger-Nose Abnormal or Heel-Thomas Abnormal Deep Tendon Reflexes: Rt Triceps: 2+, Lt Triceps: 2+, Rt Biceps: 2+, Lt Biceps: 2+, Rt Brachioradialis: 2+, Lt Brachioradialis: 2+, Rt Patellar: 2+, Lt Patellar: 2+, Rt Ankle: 2+ and Lt Ankle: 2+ Special Tests: negative Babinski Present Gait: Normal Station and Gait Results & Data Vital Signs (Past 12 Hours) Vital Signs Temp Pulse Resp BP Pulse Ox O2 Del Method 08/25/24 07:33 36.5 C 65 20 160/67 H 98 Room Air 08/25/24 03:01 36.9 C 48 L 19 152/69 H 98 Room Air Laboratory Results WBC 6.71, hemoglobin 13.0, hematocrit 38.5, platelet count 212, sodium 141, potassium 4.6, BUN 23, creatinine, glucose 88, hemoglobin A1c 6.1, calcium 9.6, magnesium 2.3, AST 70, ALT 13, triglycerides 149, cholesterol 264, LDL 171, VLDL 30, HDL 63, vitamin B12 [address] of the head, CTA of head and neck, brain MRI are as described in the HPI, I independently reviewed his images. Echocardiogram negative for cardioembolic source. Coding Level of Care Code 06350 INT INP/OBS CARE 3/75MIN Diagnoses TIA (transient ischemic attack) G45.9 Time Spent (min) 80 Comment Total time includes patient contact, chart review, counseling, note preparation
--- NOTE | 2024-08-25 12:56 | Discharge Summary ---
Discharge Summary Date of Service August 25, 2024 Principal Dx & Hospital Course #1 = Principal Diagnosis (1) TIA (transient ischemic attack): (2) Hypertension: (3) Hyperlipidemia: (4) Chronic kidney disease, stage 3a: (5) Prediabetes: (6) History of pituitary tumor: Plan 79-year-old male with past medical history of hypertension, prediabetes, CKD stage III, history of pituitary macroadenoma status post resection in 2008 presents to the ED with right-sided numbness and tingling with started at 5 PM yesterday, lasted for 5 minutes and resolved and recurred again today at 8 AM, lasted for 5 minutes and resolved #Stroke like symptoms/numbness and tingling on right side of the body: TIA versus CVA #Essential hypertension #Hyperlipidemia Symptoms of all resolved NIH score is 0 and hence no TNK given by ED CT of the head was unremarkable CT of the head showed short segment occlusion with reconstitution versus severe stenosis of the P2 segment of the left posterior cerebral artery, otherwise intracranial vessels patent. No intracranial aneurysm. Moderate atherosclerotic plaque within the bilateral cavernous and supraclinoid ICAs with mild stenosis CT of the neck shows mild atherosclerotic plaque within the proximal bilateral internal carotid arteries with resultant approximate 20% stenosis of the proximal right internal carotid artery. No stenosis of the left internal carotid artery. Patient had MRI of the brain did not show evidence of any acute stroke 2D echo was unremarkable with preserved ejection fraction, normal LV function and no valvular abnormalities, EF of 60% A1c 6.1 Total cholesterol 264 LDL of 171 Triglycerides of 149 B12 646 Patient was seen by neurologist who recommended aspirin 81 mg daily along with statin: Patient is reluctant to use statin because of his allergies to rosuvastatin and atorvastatin. Neurology recommended patient follow-up with his PCP as outpatient to discuss statin and perhaps consider pravastatin. I had a long discussion with the patient and his family who are at the bedside and patient does not want to start statin on discharge and he will speak to his PCP and network and threat support specialist regarding recommendations for statin and treatment for hyperlipidemia. Patient to continue home BP meds of amlodipine and olmesartan Lifestyle counseling regarding diet, exercise provided Patient is symptom-free, ambulating without any issues and tolerating oral diet without any issues He is stable for discharge home with follow-up with PCP as outpatient #Prediabetes A1c 6.0 from 01/31/2024 A1c on admission was 6.1 Lifestyle counseling regarding diet, exercise provided #CKD stage IIIa Renal function is at baseline Avoid nephrotoxic agents including NSAIDs Outpatient follow-up with PCP #History of pituitary macroadenoma status post resection in 2008 Patient follows up with network and threat support specialist Dr. Russell Olivera He is on testosterone replacement and also on vitamin D Outpatient follow-up with endocrinology Patient seen and examined today. He is hemodynamically stable for discharge home. I have gone over the discharge care plan, medications and follow-up with the patient and his family including his and daughter who are at the bedside in great detail and answered all their questions. This discharge took greater than 30 minutes to coordinate Admission HPI Per Admitting Provider 79-year-old male with past medical history of hypertension, prediabetes, CKD stage III, history of pituitary macroadenoma status post resection in 2008 presents to the ED with right-sided numbness and tingling with started at 5 PM yesterday, lasted for 5 minutes and resolved and recurred again today at 8 AM, lasted for 5 minutes and resolved Patient states he has been working on his house on a [email or web address] project for the last few days and has been overdoing it. His symptoms of right sided numbness and tingling occurred at rest. He reports the whole right side of his body felt numb and was tingling, denies any weakness. Denies any headache but does report some dizziness associated with it. Denies any syncopal episodes, chest pain, palpitations, shortness of breath, cough, fever, chills, urinary symptoms, nausea, vomiting, diarrhea, abdominal pain. Patient's symptoms had all resolved prior to coming to ED. In ED, patient had a CT of the head which showed no acute intracranial findings. He also has a CT of the head which showed a short segment occlusion with reconstitution versus severe stenosis of the P2 segment of the left posterior cerebral artery, moderate atherosclerotic plaque within the bilateral cavernous and supraclinoid internal carotid arteries which results in mild stenosis, no intracranial aneurysm. CTA of the neck showed mild atherosclerotic plaque within the proximal bilateral internal carotid arteries which results in approximately 20% stenosis of the proximal right internal carotid artery. No stenosis of the left internal carotid artery. No aneurysm or dissection within the neck. Hospitalist medicine was called for admission Labs, radiology, telemetry monitoring reviewed and discussed with patient Social history: Patient lives at home with his . He is independent of ADLs, very active and drives. 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 He denies tobacco use or alcohol use. Family history: Father of an [place] at age 73, mother of motor vehicle accident at 79 Discharge Exam General: No acute distress Psych: Awake and alert, oriented to place person and time HEENT: Anicteric sclera, moist oral mucosa CVS: Regular rate and rhythm Lungs: Bilateral air entry, no wheezing noted, no use of accessory muscles Abdomen: Soft, nontender, no rebound, no guarding Ext: No lower extremity edema, no calf tenderness Neuro: No focal motor deficits noted, cranial nerves II to XII are grossly intact, gait normal Discharge Plan Discharge Items Patient Disposition: Home - Self-Care Reason For Visit: STROKE LIKE SYMPTOMS Discharge Diagnosis: # TIA #Essential hypertension #Hyperlipidemia #Prediabetes #CKD stage IIIa #History of pituitary macroadenoma status post resection in 2008 Activity: Resume your previous activity Non-emergency contact: Primary Care Provider Call non-emergency contact if: you have any medication questions, your symptoms worsen and you have a fever Follow-up/Referrals: Dillon Moeller MD [Primary Care Provider] - Russell Olivera MD [Physician] - Diet: Heart Healthy Diet Comment: Avoid high sugar content food and sodas Addtl Attending Provider Instructions: DISCHARGE INSTRUCTION TO PATIENT/FAMILY: Follow-up with your primary care provider within 1 week regarding: Posthospital discharge, medication review, medication refills and follow-up on all your medical problems Please take all your discharge medications, discharge information and discharge instructions to all your doctors appointments. Avoid all NSAIDs including ibuprofen, Motrin, Advil, Aleve, naproxen, meloxicam, Toradol, diclofenac You were diagnosed with a TIA (transient ischemic attack): You were seen by the neurologist and they have recommended taking aspirin 81 mg daily along with a statin. You have allergies to atorvastatin and rosuvastatin. Please speak to your primary care provider or network and threat support specialist to discuss statin therapy as outpatient given your high cholesterol levels. Labs through PCP in 1 to 2 weeks: CBC, CMP, MG Pending Studies at Discharge: No Stand-Alone Forms: [employer], Smoking Cessation Medications and DC Order Prescriptions: New aspirin 81 mg Tablet,Delayed Release (Dr/Ec) 81 mg PO QAM Qty: 30 0RF Continued olmesartan 40 mg tablet 40 mg PO QAM Qty: 90 3RF ascorbic acid (vitamin C) 500 mg tablet,chewable 500 mg PO DAILY calcium acetate 668 mg (169 mg calcium) tablet 668 mg PO DAILY amlodipine 5 mg tablet 5 mg PO DAILY Qty: 90 3RF multivitamin with minerals tablet 1 tab PO QAM testosterone cypionate 200 mg/mL oil 75 mg subcut Q14D Qty: 4 3RF Hold Instructions: needs uro clear cholecalciferol (vitamin D3) 50 mcg (2,000 unit) capsule 4,000 unit PO DAILY Qty: 180 3RF zinc-magnesium aspart-vit B6 10-150-3.83 mg Capsule 1 cap PO QAM Discharge Orders: Discharge Order (Routine); Ordered 08/25/24 Ordered By: Murali Ibanez Admission Data Admit Date/Time: 08/24/24 13:42 Attending Provider: Murali Ibanez Admit Provider: Murali Ibanez Primary Care Provider: Dillon Moeller Other Providers: Murali Ibanez; Jam Herrera Hospital Stay Data Consultations 08/24/24 12:20 ED Decision to Admit Stat 08/24/24 12:44 Consult Neurology Routine Diagnostic Imagining Performed 08/24/24 10:18 CT angio head w con Stat CT angio neck with con Stat CT head/brain wo con Stat 08/24/24 12:57 MRI Brain [MR brain wo/w con] Stat Chest X-Ray 08/24/24 10:18 XR chest 1V portable CLINICAL HISTORY: neuro deficit, acute stroke suspected COMPARISON STUDY: Chest CT September 29, 2007. Chest radiograph March 05, 2023. FINDINGS: Lung volumes are normal. Lungs are clear. There is no pneumothorax or pleural effusion. Cardiac size is normal. Mediastinal contours are normal. There is no evidence for pulmonary edema. IMPRESSION: No acute cardiopulmonary findings. No change in appearance of the chest. ACT 112: Negative or not required by law. Electronically signed by: Carlos A Chambers M.D. 08/24/2024 10:[address] 08/24/24 10:18 CT OF THE HEAD WITHOUT CONTRAST CLINICAL HISTORY: neuro deficit, acute stroke suspected COMPARISON STUDY: MRI of the brain March 31, 2019. Head CT December 23, 2008. TECHNIQUE: Helical axial images of the head were obtained without IV contrast. Automated exposure control was utilized for the study. A dose lowering technique was utilized adhering to the principles of ALARA. FINDINGS: No acute intracranial hemorrhage, midline shift or mass effect is present. The ventricular system is unremarkable. The basal cisterns are patent. No extra-axial collections are present. There are no findings to suggest acute dural sinus thrombosis or acute territorial infarct. No significant calvarial abnormalities are present. Postoperative findings consistent with transsphenoidal pituitary resection are noted. Although suboptimally assessed by CT, the appearance is similar to previous MRI. IMPRESSION: No acute intracranial findings. ACT 112: Negative or not required by law. Electronically signed by: Carlos A Chambers M.D. 08/24/2024 11:34 AM Head CTA 08/24/24 10:18 CTA ANGIOGRAPHY OF THE HEAD CLINICAL HISTORY: neuro deficit, acute stroke suspected COMPARISON STUDY: MRI of the brain March 31, 2019. TECHNIQUE: Helical axial images of the head were obtained following uneventful intravenous administration of 120 cc of Optiray. Sagittal and coronal reconstructions were viewed as well as maximal intensity projections on an independent 3-D workstation. Automated exposure control was utilized for the study. A dose lowering technique was utilized adhering to the principles of ALARA. FINDINGS: There is short segment occlusion with reconstitution versus severe stenosis of the left P2 segment on image 126 of 274. Otherwise, the intracranial vessels are patent. There is moderate plaque within the bilateral cavernous and supraclinoid ICAs which results in mild stenosis of these vessels. There is no intracranial aneurysm. No additional stenoses are identified. Although suboptimally assessed by CT, postoperative findings consistent with transsphenoidal pituitary resection appear similar to MRI of March 31, 2019. IMPRESSION: 1. Short segment occlusion with reconstitution versus severe stenosis of the P2 segment of the left posterior cerebral artery. Otherwise, intracranial vessels patent. 2. Moderate atherosclerotic plaque within the bilateral cavernous and supraclinoid ICAs which results in mild stenosis. 3. No intracranial aneurysm. ACT 112: Negative or not required by law. Electronically signed by: Carlos A Chambers M.D. 08/24/2024 11:43 AM Neck CTA 08/24/24 10:18 CT ANGIOGRAPHY OF THE NECK WITH CONTRAST CLINICAL HISTORY: neuro deficit, acute stroke suspected COMPARISON STUDY: No previous studies for comparison. Technique: CT angiography of the carotid and vertebral arteries was obtained using Optiray and 3D reconstruction on an independent workstation. NASCET criteria was utilized. Automated exposure control was utilized for the study. A dose lowering technique was utilized adhering to the principles of ALARA. CT DOSE: 1318.86 mGy.cm Findings: Subpleural biapical densities within the lungs favor scarring. There is no cervical lymphadenopathy. There are no cervical spine fractures. The bilateral common carotid, cervical internal carotid and vertebral arteries are patent. There is mild plaque within the proximal bilateral internal carotid arteries, right greater than left. This results in approximate 20% stenosis of the proximal right internal carotid artery. The vertebral arteries are patent. There is no aneurysm or dissection within the neck. IMPRESSION: 1. Mild atherosclerotic plaque within the proximal bilateral internal carotid arteries which results in approximate 20% stenosis of the proximal right internal carotid artery. No stenosis of the left internal carotid artery. 2. No aneurysm or dissection within the neck. ACT 112: Negative or not required by law. Electronically signed by: Carlos A Chambers M.D. 08/24/2024 11:38 AM Brain MRI 08/24/24 12:57 MRI BRAIN WITH and WITHOUT CONTRAST TECHNIQUE: An MRI examination of the brain was performed utilizing sagittal and axial T1-weighted images as well as axial T2-weighted, FLAIR, gradient echo and diffusion-weighted images. Postcontrast T1-weighted images were also acquired in axial and sagittal planes. IV CONTRAST: 8 mL of Gadavist was intravenously administered. INDICATION: Headaches COMPARISON: MRI of the brain March 31, 2019 FINDINGS: Cerebral volume loss with expected expected dilatation of the basal cisterns are prominent sulcal markings. The ventricles are somewhat enlarged, to a degree that is slightly out of proportion to surrounding cerebral volume loss. There is no evidence of acute infarction or acute intracranial hemorrhage. Periventricular and subcortical white matter T2/FLAIR hyperintense foci are not specific but are typically seen in the setting chronic small vessel ischemic changes. Redemonstrated postsurgical changes from previous transsphenoidal approach resection of the pituitary. There is unchanged intrinsically T1 hyperintense 5 mm nodular structure in the posterior aspect of the right sphenoid sinus region. Otherwise, there is no suspicious parenchymal or extra-axial enhancement. The cerebellar tonsils are normal in position. The major arterial vascular structures of the skull base are patent. No intraorbital soft tissue mass lesion is observed. The visualized pain and sinus are aerated. IMPRESSION: No acute intracranial process detected. Findings that could suggest underlying mild normal pressure/communicate hydrocephalus. No significant change in the redemonstrated postsurgical changes of sphenoidal pituitary resection as described above. Electronically signed by Filipe Oquendo 08-24-2024 4:01 PM Laboratory Results - last 24 hr 08/25/24 07:09 WBC 6.71 RBC 4.27 L Hgb 13.0 L Hct 38.5 L MCV 90.2 MCH 30.4 MCHC 33.8 RDW Std Deviation 39.9 RDW Coeff of Ashlee 12.2 Plt Count 212 MPV 9.5 PT 10.7 INR 1.0 Sodium 141 Potassium 4.6 Chloride 105 Carbon Dioxide 29 Anion Gap 7 BUN 23 Creatinine 1.29 Est Cr Clr Drug Dosing 41.9 eGFR 55.70 BUN/Creatinine Ratio 17.8 Glucose 88 Estimat Average Glucose 128 Hemoglobin A1c 6.1 H Calcium 9.6 Magnesium 2.3 Total Bilirubin 0.7 AST 17 ALT 13 Alkaline Phosphatase 52 Total Protein 7.7 Albumin 4.5 Globulin 3.2 Albumin/Globulin Ratio 1.4 Triglycerides 149 Cholesterol 264 H LDL Cholesterol, Calc 171 VLDL Cholesterol, Calc 30 HDL Cholesterol 63 Cholesterol/HDL Ratio 4.2 Vitamin B12 646 Pending Results Patient Have Any Pending Studies at Discharge: No Discharge Instructions Given to Patient (Per Discharging Provider) DISCHARGE INSTRUCTION TO PATIENT/FAMILY: Follow-up with your primary care provider within 1 week regarding: Posthospital discharge, medication review, medication refills and follow-up on all your medical problems Please take all your discharge medications, discharge information and discharge instructions to all your doctors appointments. Avoid all NSAIDs including ibuprofen, Motrin, Advil, Aleve, naproxen, meloxicam, Toradol, diclofenac You were diagnosed with a TIA (transient ischemic attack): You were seen by the neurologist and they have recommended taking aspirin 81 mg daily along with a statin. You have allergies to atorvastatin and rosuvastatin. Please speak to your primary care provider or network and threat support specialist to discuss statin therapy as outpatient given your high cholesterol levels. Labs through PCP in 1 to 2 weeks: CBC, CMP, MG Total Time Total Time Spent Total Time Spent (In Minutes): 40 minutes Coding Level of Care Code 11509 INP/OBS DISCH >30 MIN Diagnoses TIA (transient ischemic attack) G45.9 Primary hypertension I10 Hypertension type: primary hypertension Pure hypercholesterolemia E78.00 Hyperlipidemia type: pure hypercholesterolemia Chronic kidney disease, stage 3a N18.31 Prediabetes R73.03 History of pituitary tumor Z87.894
== END 2024-08-25 15:53 | disposition home or self-care (01) ==
LOC: ED 09:58 → 2S 09:58